=== PATIENT | male | born 1980 | race Caucasian/White ===

== ENCOUNTER 2018-04-16 07:09 | Emergency (ER) | payer MEDICAID ==
[~2018-04-16] VITALS: Ht 165.1 cm; Wt 74.6 kg
[2018-04-16 07:13] VITALS: Ht 165.1 cm; Wt 74.6 kg
[2018-04-16] MEDS ORDERED: ONDANSETRON (ODT) 4 MG TAB ODT STA (07:44)
[2018-04-16] MEDS ORDERED: HYDROCODONE/APAP (5/325) TAB PO ONE (08:00)
[2018-04-16] MEDS ORDERED: IBUP-1542 PO (08:42)
--- NOTE | 2018-04-16 10:45 | ERD ---
ER Documentation Chief Complaint Chief Complaint pt is bib family with c/o right sided abd pain x 3 yrs, (years) HPI 38-year-old male presenting with right-sided abdominal pain. States is been going for the last 2 weeks has progressively gotten worse last night. He states he has not taken medications for symptoms. Denies any changes to urination or bowel movement. No rash noted. Patient has no fevers. Denies any vomiting. Denies medical problems. NKDA. Surgical history denies. Social history denies ROS All systems reviewed and are negative except as per history of present illness. Medications Home Meds Active Scripts Ibuprofen* (Motrin*) 600 Mg Tab, 600 MG PO Q6, #30 TAB Prov:JOSE L AUSTIN PA-C 04/16/18 Allergies Allergies: Coded Allergies: No Known Allergy (Unverified , 04/16/18) PMhx/Soc History of Surgery: No Anesthesia Reaction: No Hx Neurological Disorder: No Hx Respiratory Disorders: No Hx Cardiac Disorders: No Hx Psychiatric Problems: No Hx Miscellaneous Medical Probl: No Hx Alcohol Use: No Hx Substance Use: No Hx Tobacco Use: No Smoking Status: Never smoker FmHx Family History: No diabetes, No coronary disease, No other Physical Exam Vitals Vital Signs Date Temp Pulse Resp B/P (MAP) Pulse Ox O2 O2 Flow FiO2 Time Delivery Rate 04/16/18 97.4 87 18 151/88 98 07:13 (109) Physical Exam GENERAL: The patient is well-appearing, well-nourished, in no acute distress CHEST: Clear to auscultation bilaterally. There are no rales, wheezes or rhonchi. HEART: Regular rate and rhythm. No murmurs, clicks, rubs or gallops. ABDOMEN:Soft, nontender and nondistended. Good bowel sounds. No rebound or guarding. No gross peritonitis. No gross organomegaly or masses. BACK: No midline or flank tenderness. Result Diagram: 04/16/18 0751 04/16/18 0751 Results 24 hrs Laboratory Tests Test 04/16/18 07:51 White Blood Count 6.9 10^3/ul Red Blood Count 5.15 10^6/ul Hemoglobin 15.1 g/dl Hematocrit 45.1 % Mean Corpuscular Volume 87.6 fl Mean Corpuscular Hemoglobin 29.3 pg Mean Corpuscular Hemoglobin Concent 33.5 g/dl Red Cell Distribution Width 12.4 % Platelet Count 228 10^3/UL Mean Platelet Volume 10.5 fl Immature Granulocytes % 0.300 % Neutrophils % 65.1 % Lymphocytes % 27.5 % Monocytes % 4.8 % Eosinophils % 1.6 % Basophils % 0.7 % Nucleated Red Blood Cells % 0.0 /100WBC Immature Granulocytes # 0.020 10^3/ul Neutrophils # 4.5 10^3/ul Lymphocytes # 1.9 10^3/ul Monocytes # 0.3 10^3/ul Eosinophils # 0.1 10^3/ul Basophils # 0.1 10^3/ul Nucleated Red Blood Cells # 0.0 10^3/ul Urine Color YELLOW Urine Clarity CLEAR Urine pH 5.0 Urine Specific [place] 1.016 Urine Ketones NEGATIVE mg/dL Urine Nitrite NEGATIVE mg/dL Urine Bilirubin NEGATIVE mg/dL Urine Urobilinogen NEGATIVE mg/dL Urine Leukocyte Esterase NEGATIVE [place]/ul Urine Microscopic RBC 0 /HPF Urine Microscopic WBC 1 /HPF Urine Hemoglobin 1+ mg/dL Urine Glucose NEGATIVE mg/dL Urine Total Protein NEGATIVE mg/dl Sodium Level 142 mmol/L Potassium Level 4.0 mmol/L Chloride Level 108 mmol/L Carbon Dioxide Level 27 mmol/L Anion Gap 7 Blood Urea Nitrogen 15 mg/dl Creatinine 0.79 mg/dl Est Glomerular Filtrat Rate mL/min > 60 mL/min Glucose Level 101 mg/dl Calcium Level 9.3 mg/dl Total Bilirubin 0.2 mg/dl Direct Bilirubin 0.00 mg/dl Indirect Bilirubin 0.2 mg/dl Aspartate Amino Transf (AST/SGOT) 32 IU/L Alanine Aminotransferase (ALT/SGPT) 32 IU/L Alkaline Phosphatase 74 IU/L Total Protein 7.8 g/dl Albumin 4.4 g/dl Globulin 3.40 g/dl Albumin/Globulin Ratio 1.29 Lipase 122 U/L Current Medications Medications Dose Sig/Ghulam Start Time Status Last (Trade) Ordered Route PRN Stop Time Admin Dose Reason Admin 1 tab ONCE ONCE 04/16/18 DC 04/16/18 Acetaminophen PO 08:00 04/16/18 08:02 / 08:01 Hydrocodone Bitart ([place] (5/325)) Ondansetron 4 mg ONCE STAT 04/16/18 DC 04/16/18 HCl (Zofran ODT 07:44 04/16/18 08:02 Odt) 07:46 Procedures/MDM DIAGNOSTIC IMAGING REPORT Patient: JHON PECK : 1980 Age: 38 Sex: M MR #: [id number] DOS: 04/16/18 0744 Ordering MD: NATANAEL AUSTIN PA-C Location: [facility] Room/Bed: PROCEDURE: CT Abdo and Pelvis w/o IV Cont CLINICAL INDICATION: Abdominal pain. TECHNIQUE: Contiguous axial imaging was performed through the abdomen and pelvis without contrast. Coronal and sagittal reformatting was utilized. DICOM images are available. Lack of intravenous contrast causes limitation in evaluation of the solid organs and vasculature. Lack of oral contrast causes limitation of th e gastrointestinal tract. CTDIvol: 11.47 mGy mGy. Total Exam DLP: 651.14 mGy.cm mGy-cm. This CT exam was performed using one or more of the following dose reduction techniques: Automated exposure control, adjustment of the mA and/or kV according to patient size, use of iterative reconstruction technique. COMPARISON: None. FINDINGS: VISUALIZED LUNG BASES: 0.3 cm right middle lobe pleural lymph node appears to be present on coronal image 18/axial image 9. LIVER: Unremarkable. SPLEEN: Punctate granuloma is present. PANCREAS: Unremarkable. GALLBLADDER: Unremarkable. ADRENAL GLANDS: Unremarkable. RIGHT KIDNEY: Unremarkable. LEFT KIDNEY: Unremarkable. ADENOPATHY: None. VASCULATURE: Unremarkable for this non-angiographic study. GI TRACT: There is no bowel dilatation to suggest obstruction. Colonic diverticuli are present without appreciated inflammatory change. APPENDIX: Unremarkable. PELVIC STRUCTURES: Unremarkable. OTHER SOFT TISSUES: Very small fat containing umbilical hernia is present. 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 IMPRESSION: 1. No acute abnormalities are appreciated. MDM: 38-year-old male presenting with right-sided abdominal pain. I have low suspicion for nephrolithiasis or acute abdominal emergency. Patient CT scan and blood work are stable. Patient will be discharged with supportive medications for pain. Patient's vitals are stable. I have low suspicion for sepsis. Patient is told if symptoms change or worsen to return immediately to the ER. Patient is recommended to follow-up with primary care within 1-2 days for close evaluation. All questions answered at discharge Departure Diagnosis: Primary Impression: Flank pain Condition: Stable Patient Instructions: Flank Pain, Uncertain Cause Referrals: [facility] YOU HAVE RECEIVED A MEDICAL SCREENING EXAM AND THE RESULTS INDICATE THAT YOU DO NOT HAVE A CONDITION THAT REQUIRES URGENT TREATMENT IN THE EMERGENCY DEPARTMENT. FURTHER EVALUATION AND TREATMENT OF YOUR CONDITION CAN WAIT UNTIL YOU ARE SEEN IN YOUR DOCTORS OFFICE WITHIN THE NEXT 1-2 DAYS. IT IS YOUR RESPONSIBILITY TO MAKE AN APPOINTMENT FOR FOLOW-UP CARE. IF YOU HAVE A PRIMARY DOCTOR --you should call your primary doctor and schedule an appointment IF YOU DO NOT HAVE A PRIMARY DOCTOR YOU CAN CALL OUR PHYSICIAN REFERRAL HOTLINE AT IF YOU CAN NOT AFFORD TO SEE A PHYSICIAN YOU CAN CHOSE FROM THE FOLLOWING [facility] [address] [facility]. [facility] [address] [facility]. [facility] [address] [facility] [facility] [address] [facility]. [facility] [address] [facility] [facility] [address] Additional Instructions: FOLLOW UP WITH YOUR PRIMARY CARE PHYSICIAN TOMORROW.Return to this facility if you are not improving as expected. JOSE L AUSTIN PA-C Apr 16, 2018 10:45
== END 2018-04-16 09:01 | disposition home or self-care (01) ==
LOC: FTE 07:09
DX: R10.9 Unspecified abdominal pain (principal)
CPT/HCPCS: 36415; 74176; 80053; 81001; 83690; 85025; Z7502; Z7610